=== PATIENT | female | born 1940 | race Caucasian/White ===

== ENCOUNTER 2016-10-11 13:50 | Emergency (ER) | payer MEDICARE, BC ==
[~2016-10-11 13:50] MED LIST: Iopamidol 370 76% 125 ML VIAL FS ONE
[2016-10-11 15:23] LABS: #Lymphocytes 1.1 thou/uL (1.20-3.40); #Monocytes 0.3 thou/uL (0.11-0.59); #Neutrophils 10.2 thou/uL (1.40-6.50); %Basophils 0.2 % (0.0-1.0); %Lymphocytes 9.7 % (21.0-51.0); %Monocytes 2.4 % (0.0-10.0); %Neutrophils 87.8 % (42.0-75.0); Hemoglobin 15.6 g/dL (12.0-16.0); Mean Corpuscular HGB CONC 33.3 g/dL (32.0-36.0); Mean Corpuscular Hemoglobin 31.9 pg (27.0-31.0); Mean Corpuscular Volume 95.8 fl (81.0-99.0); Mean Platelet Volume 7.9 fL (7.4-10.4); Platelet Count 238 thou/uL (130-400); RBC Distribution Width 12.7 % (11.5-14.5); White Blood Cell (WBC) Count 11.7 thou/uL (4.8-10.8)
[2016-10-11 15:31] LABS: Prothrombin Time 13.1 SEC (12.0-14.7)
[2016-10-11 15:32] LABS: PTT 27.9 SEC (22.9-36.1)
[2016-10-11 15:33] LABS: D-Dimer Test 0.64 *mcg/mL (0.27-0.43)
[2016-10-11 15:38] LABS: ALT (SGPT) 26 U/L (0-55); AST (SGOT) 26 U/L (5-34); Albumin 4.5 g/dL (3.4-4.8); Alkaline Phosphatase 101 U/L (40-150); Anion Gap 18 mmol/L (10-20); BUN (Urea Nitrogen) 13 mg/dL (9.8-20.1); Bilirubin, Total 0.5 mg/dL (0.2-1.2); Calc. Creatinine Clearance 0 mL/min (70-130); Calcium 10.1 mg/dL (7.8-10.44); Carbon Dioxide 25 mmol/L (23-31); Chloride 98 mmol/L (98-107); Estimated GFR-MDRD 72; Globulin 3.5 g/dL (2.4-3.5); Glucose 116 mg/dL (83-110); Lipase 6 U/L (8-78); Potassium 4.6 mmol/L (3.5-5.1); Sodium 136 mmol/L (136-145)
--- NOTE | 2016-10-11 15:38 | RAD ---
EXAM: ONE VIEW CHEST: COMPARISON: 07/25/16. HISTORY: Chest pain. FINDINGS: Enlarged cardiac silhouette. The patient is kyphotic which limits evaluation of the lung apices. T here is pleural and parenchymal of both lung bases. No obvious pneumothorax or osseous abnormality. IMPRESSION: Bibasilar pleural and parenchymal changes. POS: GRACE
[2016-10-11 15:43] LABS: CKMB 5.5 ng/mL (0-6.6); Troponin I Less than 0.010 ng/mL (< 0.028)
[2016-10-11] MEDS ORDERED: Fentanyl 100 MCG/2 ML VIAL ONE (16:17)
[2016-10-11 16:41] LABS: Bilirubin Negative (Negative); Blood, Urine Negative (Negative); Clarity Clear (Clear); Glucose, Urine (Dipstick) Negative (Negative); Leukocyte Negative (Negative); Nitrite Negative (Negative); Protein, Urine (Dipstick) Negative (Neg-Trace); Specific Gravity, Urine 1.015 (1.005-1.030); Urobilinogen 0.2 mg/dL (0.2-1.0); pH, Urine 7.5 (5.0-9.0)
[2016-10-11] MEDS ORDERED: methylPREDNISolone Sod Succ/PF 125 MG/2 ML VIAL ONE (18:16)
[2016-10-11] MEDS ORDERED: Sterile Water 10 ML ONE (18:17)
--- NOTE | 2016-10-11 19:22 | CT ---
CTA OF THE THORAX UTILIZING IV CONTRAST WITH PE PROTOCOL AND 3D REFORMAT IMAGING 10/11/16 CONTRAST: 120 mL of Isovue 370. COMPARISON: Prior exam dated 09/15/14. FINDINGS: No central or segmental pulmonary embolus is evident. There is air space consolidation left lower lobe. There is severe emphysema. There is slight prominence of the right infrahilar lymph node which is stable measuring 1.1 cm. Ther e is mildly prominent left hilar lymph nodes which are similar. There is some calcified lymph nodes within the mediastinum and hilar regions. There is a calcified granuloma in the right lower lobe. There is stable calcification within the rig ht hepatic lobe. There is diffuse osteopenia. There is vertebroplasty change involving the mid thora cic spine which is similar. IMPRESSION: 1. No central or segmental pulmonary embolus. 2. Left lower lobe pneumonia. 3. Severe emphysema. 4. Findings of prior granulomatous disease. 5. Vertebroplasty change and compression abnormalities of the mid thoracic spine. POS: YEIMI
--- NOTE | 2016-10-11 20:08 | ERRECORD ---
[facility] EMERGENCY RECORD HPI SHORTNESS OF BREATH (15:21 DHAM) CHIEF COMPLAINT: Patient presents for evaluation of shortness of breath, Patient presents for evaluation of chest pain. HISTORIAN: History provided by patient, History provided by patient's family, DAUGHTER, Pt started with "severe chest pain" 24 hours ago in the right upper chest. She has also had increased shortness of breath but has not increased the frequency of her nebulizers. She was started on oral steroids yesterday by her pcp and was hospitalized 4 weeks ago with "double pneumonia at [facility]" and 2 weeks ago at [facility] for "oxygen starvation" that I suspect was a COPD exacerbation. LOCATION: Symptoms are localized, most severe in the right upper chest. QUALITY: Pain is sharp in nature, described as stabbing. SEVERITY: Maximum severity of pain rated as 10/10, Current severity of pain rated as 8/10. TIME COURSE: Gradual onset of symptoms, 1, days priror to arrival, There has been no change in the patient's symptoms over time, are constant. ASSOCIATED WITH: No associated cough, Associated with chest pain, for 1 day, constant, No associated diaphoresis, No associated diarrhea, Associated with dyspnea on exertion, for 1 day, constant, No associated fever, No associated hemoptysis, No associated increased inhaler use, No associated nausea, No associated palpitations, No associated paroxysmal nocturnal dyspnea, No associated peripheral edema, Associated with pleuritic chest pain, for 1 day, constant, No associated upper respiratory infection, No associated vomiting, No associated wheezing. EXACERBATED BY: Patient's condition exacerbated by deep breaths. RELIEVED BY: Patient's condition relieved by nothing. RISK FACTORS: Coronary artery disease risk factors, include smoking, Thoracic aortic dissection risk factors, not applicable for this patient, Pulmonary embolism risk factors, include smoking. ROS (15:45 DHAM) CONSTITUTIONAL: Historian denies chills, denies fever, denies lethargy. EYES: Historian denies eye pain, denies eye redness, denies eye discharge. ENT: Historian denies rhinorrhea, denies sore throat, denies stridor, denies voice changes. CARDIOVASCULAR: Historian reports chest pain, pleuritic, in the right chest, upper, no radiation, Historian denies diaphoresis, reports dyspnea on exertion, reports exercise intolerance, denies syncope, denies palpitations. RESPIRATORY: Historian denies cough, reports shortness of breath, denies sputum. &a-1R&a+25V*p+0X*[id number]*c202B*c15G*c2P*p-0X&a-25V&a+1R Name: Ashly Box : 1940 F76 MedRec: [id number] AcctNum: [id number] Prepared: Tucker Oct 12, 2016 03:03 by Interface Page 1 of 6 pMD [facility] EMERGENCY RECORD GI: Historian denies abdominal pain, denies diarrhea, denies nausea, denies vomiting. chronic "problems with a hiatal hernia". GENITOURINARY FEMALE: Historian denies dysuria, denies frequency, denies urgency. MUSCULOSKELETAL: Historian denies arthralgias, denies injury. marked kyphosis. SKIN: Historian denies pruritis, denies rash, denies skin changes. NEUROLOGIC: Historian denies confusion, denies dizziness, denies gait changes, denies lethargy, denies mental status changes, denies paresthesias, denies sensory changes, denies speech changes. ENDOCRINE: Historian denies cold intolerance, denies polydipsia, denies polyuria. HEMO/LYMPHATIC: Historian denies abnormal blood clotting, denies easy bruising. ALLERGIC/IMMUNOLOGIC: Historian denies eczema, denies hives. PAST MEDICAL HISTORY MEDICAL HISTORY: Notes: VERIFIED 07-18-16, Past medical history includes cardiac history, coronary artery disease, myocardial infarction, Past medical history includes musculoskeletal disorder, osteoporosis, Past medical history includes pulmonary disease, chronic obstructive pulmonary disease, emphysema, Notes: COMPRESSION FRACTURES, CERVICAL CANCER, CHRONIC BACK PAIN, Past medical history includes gastrointestinal disease, gastroesophageal reflux disease, Past medical history includes history of hyperlipidemia, high cholesterol. verified 12/23/15.VERIFIED 10/11/16. (14:11 EROG) FEMALE SURGICAL HISTORY: FX PELVIS, BACK SURGERY X 3 IN 1970'S, HYSTERECTOMY, CERVICAL CANCER, FOOT SURGERIES TO RIGHT FOOT X 3, LEFT FOOT X 2, LEFT TKR,. verified 12/23/15. VERIFED 10/11/16. (14:11 EROG) PSYCHIATRIC HISTORY: Notes: DENIES, Notes: DENIES. verified 12/23/15. VERIFIED 10/11/16. (14:11 EROG) SOCIAL HISTORY: Patient denies alcohol use, Patient denies drug use, Patient is a former tobacco user, smoked cigarettes, Patient quit smoking less than 10 years ago, Patient denies alcohol use, Patient denies drug use, Patient is a former tobacco user, smoked cigarettes, Patient quit smoking in the past year. verified 12/23/15. VERIFIED 10/11/16. (14:11 EROG) Patient denies alcohol use, Patient denies drug use, Patient is a former tobacco user, smoked cigarettes, Patient quit smoking less than 10 years ago, Patient denies alcohol use, Patient denies drug use, Patient is a former tobacco user, smoked cigarettes, Patient quit smoking in the past year. verified 12/23/15. VERIFIED 10/11/16. Pt tells me that she did smoke a cigarette on the way up here and smokes intermittently. (15:56 DHAM) NOTES: HAVE EXAMINED AND AGREE WITH PMHX, SOCIAL HX AND PAST FAMILY HX as noted in nursing docuentation. (15:57 DHAM) &a-1R&a+25V*p+0X*[id number]*c202B*c15G*c2P*p-0X&a-25V&a+1R Name: Ashly Box : 1940 F76 MedRec: [id number] AcctNum: [id number] Prepared: Sat Oct 12, 2016 03:03 by Interface Page 2 of 6 pMD [facility] EMERGENCY RECORD KNOWN ALLERGIES No Known Drug Allergies CURRENT MEDICATIONS albuterol sulfate: SOLUTION, NON-ORAL : Strength - 5 mg/mL : INHALATION Patient Dose: Unknown. (14:06 EROG) Symbicort: HFA AEROSOL WITH ADAPTER (GRAM) : Strength - 160 mcg-4.5 mcg/actuation : INHALATION Patient Dose: Unknown. (14:07 EROG) Spiriva with HandiHaler: CAPSULE, WITH INHALATION DEVICE : Strength - 18 mcg : INHALATION Patient Dose: Unknown. (14:07 EROG) albuterol sulfate: VIAL, NEBULIZER (EA) : Strength - 2.5 mg/0.5 mL : INHALATION Patient Dose: Unknown. (14:07 EROG) Reglan: TABLET : Strength - 10 mg : ORAL Patient Dose: Unknown. (16:32 EROG) Duragesic: PATCH, TRANSDERMAL 72 HOURS : Strength - 25 mcg/hour : TRANSDERMAL Patient Dose: Unknown. (16:32 EROG) Lortab 10-325: TABLET : Strength - 10 mg-325 mg : ORAL Patient Dose: As Needed. (16:32 EROG) Neurontin: CAPSULE : Strength - 300 mg : ORAL Patient Dose: 300 mg Oral 3 times a day. (16:32 EROG) Lexapro: TABLET : Strength - 10 mg : ORAL Patient Dose: 10 mg Oral once a day. (16:32 EROG) PriLOSEC: CAPSULE,DELAYED RELEASE (ENTERIC COATED) : Strength - 20 mg : ORAL Patient Dose: 20 mg Oral once a day (in the morning). (16:32 EROG) simvastatin: TABLET : Strength - 40 mg : ORAL Patient Dose: 40 mg Oral once a day (at bedtime). (16:32 EROG) Tranxene T-Tab: TABLET : Strength - 3.75 mg : ORAL Patient Dose: 1 tab(s) Oral 3 times a day. (16:32 EROG) Flexeril: TABLET : Strength - 10 mg : ORAL Patient Dose: 10 mg Oral 3 times a day. (16:32 EROG) VITAL SIGNS VITAL SIGNS: BP: 139/80, Pulse: 111, Resp: 22, Temp: 97.6 (Oral), Pain: 8-9 (Constant), O2 sat: 88 on Room Air, Time: 10/11/2016 13:59. &a-1R&a+25V*p+0X*v5302W*c202B*c15G*c2P*p-0X&a-25V&a+1R Name: Ashly Box : 1940 F76 MedRec: [id number] AcctNum: [id number] Prepared: Sat Oct 12, 2016 03:03 by Interface Page 3 of 6 pMD [facility] EMERGENCY RECORD (13:59 EROG) BP: 147/96, Pulse: 102, Resp: 18, O2 sat: 89 on 3L Oxygen, Time: 10/11/2016 14:30. (14:30 EROG) BP: 137/95, Pulse: 105, Resp: 21, O2 sat: 95 on 3L Oxygen, Time: 10/11/2016 15:00. (15:00 EROG) BP: 139/87, Pulse: 111, Resp: 16, O2 sat: 90 on 3L Oxygen, Time: 10/11/2016 15:30. (15:30 EROG) BP: 139/93, Pulse: 111, Resp: 18, Pain: 8.5 (Sharp), O2 sat: 92 on 3L Oxygen, Time: 10/11/2016 16:00. (16:00 EROG) BP: 133/97, Pulse: 110, Resp: 16, Pain: 7, O2 sat: 94 on 3L Oxygen, Time: 10/11/2016 16:30. (16:30 EROG) BP: 142/84, Pulse: 99, Resp: 13, Pain: 5, O2 sat: 91 on 3L Oxygen, Time: 10/11/2016 17:09. (17:09 EROG) BP: 137/93, Pulse: 103, Resp: 17, Pain: 5, O2 sat: 61 on 2L Oxygen, Time: 10/11/2016 17:30. (17:30 EROG) BP: 149/108, Pulse: 109, O2 sat: 90 on 3L Oxygen, Time: 10/11/2016 18:00. (18:00 EROG) BP: 154/93, Pulse: 103, Resp: 23, Pain: 8, O2 sat: 89 on 3L Oxygen, Time: 10/11/2016 18:30. (18:30 EROG) BP: 140/91, Pulse: 100, Resp: 27, O2 sat: 92 on 3L Oxygen, Time: 10/11/2016 19:00. (19:00 EROG) BP: 150/94, Pulse: 102, Resp: 18, Pain: 5, O2 sat: 93 on 3L Oxygen, Time: 10/11/2016 19:30. (19:30 EROG) PHYSICAL EXAM (15:51 DHAM) CONSTITUTIONAL: Vital signs reviewed, Patient afebrile, Pulse mildly tachycardic, Blood pressure normal, Respiratory rate normal, Patient appears non toxic, Patient appears pain free, Patient alert and oriented to person, place and time. Pt ambulated in without her O2 and her RA sat was 61%. She was placed on 3L/nc and it comes up to 90-91%. HEAD: Head exam normal, Head exam included findings of head atraumatic, normocephalic. EYES: Eye exam included findings of eyelids normal to inspection, Pupils equally round and reactive to light, Extraocular muscles intact, Conjunctiva normal, Sclera normal. ENT: Ear exam normal, Nose exam normal, Pharynx exam normal, Uvula exam normal, Tonsil exam normal, Mouth exam normal, mucous membranes moist. NECK: Neck exam normal, Neck exam included findings of normal range of motion, Trachea midline, no meningeal signs, no jugular venous distention, no cervical adenopathy. RESPIRATORY CHEST: chest with marked kyphosis suggesting restrictive dz, Respiratory exam included findings of no respiratory distress, Breath sounds clear but markedly diffusely decreased, No wheezing, No rales noted. Bowel sounds noted on left chest exam. CARDIOVASCULAR: Cardiovascular exam included findings of heart rate mildly tachycardic and regular rhythm, Heart sounds normal, normal S1, normal S2, no murmurs, Pedal pulses normal. ABDOMEN FEMALE: Abdominal exam normal, Abdominal exam included &a-1R&a+25V*p+0X*m3887K*c202B*c15G*c2P*p-0X&a-25V&a+1R Name: Ashly Box : 1940 F76 MedRec: [id number] AcctNum: [id number] Prepared: Sat Oct 12, 2016 03:03 by Interface Page 4 of 6 pMD [facility] EMERGENCY RECORD findings of abdomen nontender, Bowel sounds normal, Liver normal, Spleen normal, no distension, no mass, no peritoneal signs, no rigidity, no guarding, no rebound. BACK: Back exam normal, Back exam included findings of normal inspection, range of motion normal, no tenderness. UPPER EXTREMITY: Upper extremity exam normal, Upper extremity exam included findings of inspection normal, Range of motion normal, Motor strength normal, Sensation intact. LOWER EXTREMITY: Lower extremity exam normal, Lower extremity exam included findings of inspection normal, Range of motion normal, Motor strength normal, Sensation intact, Pedal pulse normal. NEURO: Mertzon coma scale 15, Neuro exam findings include patient oriented to person, place and time, Speech normal, Gait normal, Cranial nerves intact, Deep tendon reflexes normal, no focal motor deficits, no focal sensory deficits, no cerebellar deficits. SKIN: Skin exam normal, Skin exam included findings of skin warm, dry, and normal in color, no rash. LYMPHATIC: Lymphatic exam normal, Lymphatic exam included findings of cervical nodes normal. PSYCHIATRIC: Psychiatric exam included findings of patient oriented to person place and time, Normal affect, Judgment normal, Insight normal, Remote memory normal, Recent memory normal, Concentration normal, No suicidal ideations. EKG INTERPRETATION (14:54 DHAM) 12 LEAD EKG INTERPRETATION: 12 lead EKG interpreted by Emergency Department Physician at time of study, 12 lead EKG shows, sinus tachycardia, Rate (beats per minute): 102, with no ectopics, Compared with previous EKG from, 07/25/2016 04:52, Interpretation: normal EKG, Similar to old EKG, Conduction normal, ST segments normal, T waves normal, [place], left. RADIOLOGYINTERPRETATION CHEST: Chest films negative, no infiltrates, no pneumothorax, no hemothorax, no masses, no cardiomegaly, no congestive heart failure, no effusion, no free air, "bilat basilar parenchymal changes". (17:46 DHAM) Chest CT, with contrast shows, no fractures, patchy infiltrate, to the left lower, no pneumothorax, no hemothorax, no pleural effusion, no pulmonary embolism, no mass. (17:52 DHAM) MEDICATION ADMINISTRATION SUMMARY Drug Name: Solu-MEDROL intravenous, Dose Ordered: 125 mg, Route: IV Push, Status: Given, Time: 18:27 10/11/2016, Drug Name: Levaquin in 5 % dextrose, Dose Ordered: 750 mg, Route: IV Piggy Back, Status: Given, Time: 17:48 10/11/2016, Drug Name: *fentaNYL (PF) intravenous, Dose Ordered: 25 mcg, Route: IV Push, Status: Given, Time: 16:39 10/11/2016, Drug Name: fentaNYL (PF) intravenous, Dose Ordered: 25 mcg, Route: IV &a-1R&a+25V*p+0X*v8837S*c202B*c15G*c2P*p-0X&a-25V&a+1R Name: Ashly Box : 1940 F76 MedRec: [id number] AcctNum: [id number] Prepared: Sat Oct 12, 2016 03:03 by Interface Page 5 of 6 pMD [facility] EMERGENCY RECORD Push, Status: Given, Time: 16:22 10/11/2016, Drug Name: DuoNeb, Dose Ordered: 3 mL, Route: Nebulize, Status: Given, Time: 15:01 10/11/2016, *Additional information available in notes, Detailed record available in Medication Service section. DOCTOR NOTES (17:47 DHAM) TEXT: Given the pt's tenuous pulmonary status, she likely needs RT evaluation with her admission. Pt requests [facility]. Pt discussed with Dr. Mcclendon who accepts the pt in transfer via EMS. She appears stable for transfer. She has had her Levaquin 750mg IV started. PROBLEM LIST No recorded problems DIAGNOSIS (17:45 DHAM) FINAL: PRIMARY: PNEUMONIA UNSPECIFIED ORGANISM. PRESCRIPTION No recorded prescriptions DISPOSITION PATIENT: Disposition Type: Transfer, Disposition: Transfer to [facility]. (17:45 DHAM) Patient left the department. (20:03 EROG) [place]: MARCO=MD Leora, George EROG=GUSTAVO Schmidt, Khang &a-1R&a+25V*p+0X*r3404V*c202B*c15G*c2P*p-0X&a-25V&a+1R Name: Ashly Box : 1940 F76 MedRec: [id number] AcctNum: [id number] Prepared: Sat Oct 12, 2016 03:03 by Interface Page 6 of 6 pMD MTDD
--- NOTE | 2016-10-11 20:15 | PICIS ---
[facility] EMERGENCY RECORD COMMUNICATIONS COMMUNICATIONS: Other notification, Name Caitlin, contacted at [facility], Reason for notification Transfer request, 1750: MD to MD merchant/Dr. Herrera accepted/Carmelina Hatch giving AD approval for ED to ED transfer. (17:45 AGAN) Ambulance service, contacted at [facility] EMS Dispatch, Name of provider Dr. Espana, Person contacted [place], requested for transfer to another facility, by advanced life support transport, Estimated time of arrival Unknown, Medic 41 on 911 call ETA unknown. (17:55 AGAN) Notes: 1949: Ambulance arrival time 2001: Departure time. (19:50 AGAN) TRIAGE (FriOct 11, 2016 14:02 EROG) TRIAGE NOTES: C/O SEVERE PAIN TO MID CHEST, RADIATING OUT TO RIGHT SIDE. (FriOct 11, 2016 14:02 EROG) PATIENT: NAME: Ashly Box, AGE: 76, GENDER: female, : Sari 1940, TIME OF GREET: FriOct 11, 2016 13:50, PREFERRED LANGUAGE: Paraguayan, ETHNICITY: Not or , FALL RISK: YES, ECODE BILLING MAP: [facility], SSN: [id number], Zip Code: [address], KG WEIGHT: 56.70, HEIGHT/LENGTH: 167.64cm, BMI: 20.17, PHONE: , , , PERSON ID: [id number], PCP: DR. ROSALVA LUIS. (FriOct 11, 2016 14:02 EROG) COMPLAINT: PAIN. (FriOct 11, 2016 14:02 EROG) ADMISSION: URGENCY: 3 Urgent, ADMISSION SOURCE: Home, TRANSPORT: CAR, BED: TRIAGE. (FriOct 11, 2016 14:02 EROG) ASSESSMENT: Assessment: SHART PAIN TO MID CHEST, RADIATING OUT TO RIGHT CHEST., Symptoms began 2 days ago. (14:11 EROG) SIRS SCORING: Heart Rate 55-109 (0), Temp range 96.8-101.1 (0), respiratory rate 12-24 (0), Mental Status altered: no (0), Infection or Suspected Infection: No. (14:11 EROG) PROVIDERS: TRIAGE NURSE: Khang Dumont RN. (FriOct 11, 2016 14:02 EROG) VITAL SIGNS: BP 139/80, Pulse 111, Resp 22, Temp 97.6, (Oral), Pain 8-9, (Constant), O2 Sat 88, on Room Air, Time 10/11/2016 13:59. (13:59 EROG) PREVIOUS VISIT ALLERGIES: No Known Drug Allergies. (FriOct 11, 2016 14:02 EROG) No Known Drug Allergies. (14:11 EROG) KNOWN ALLERGIES No Known Drug Allergies CURRENT MEDICATIONS albuterol sulfate: SOLUTION, NON-ORAL : Strength - 5 mg/mL : INHALATION Patient Dose: Unknown. (14:06 EROG) Symbicort: HFA AEROSOL WITH ADAPTER (GRAM) : Strength - 160 mcg-4.5 &a-1R&a+25V*p+0X*f5855Z*c202B*c15G*c2P*p-0X&a-25V&a+1R Name: Charu Ashly Andrew : 1940 F76 MedRec: [id number] AcctNum: [id number] Prepared: Sat Oct 12, 2016 03:10 by Interface Page 1 of 17 pMD [facility] EMERGENCY RECORD mcg/actuation : INHALATION Patient Dose: Unknown. (14:07 EROG) Spiriva with HandiHaler: CAPSULE, WITH INHALATION DEVICE : Strength - 18 mcg : INHALATION Patient Dose: Unknown. (14:07 EROG) albuterol sulfate: VIAL, NEBULIZER (EA) : Strength - 2.5 mg/0.5 mL : INHALATION Patient Dose: Unknown. (14:07 EROG) Reglan: TABLET : Strength - 10 mg : ORAL Patient Dose: Unknown. (16:32 EROG) Duragesic: PATCH, TRANSDERMAL 72 HOURS : Strength - 25 mcg/hour : TRANSDERMAL Patient Dose: Unknown. (16:32 EROG) Lortab 10-325: TABLET : Strength - 10 mg-325 mg : ORAL Patient Dose: As Needed. (16:32 EROG) Neurontin: CAPSULE : Strength - 300 mg : ORAL Patient Dose: 300 mg Oral 3 times a day. (16:32 EROG) Lexapro: TABLET : Strength - 10 mg : ORAL Patient Dose: 10 mg Oral once a day. (16:32 EROG) PriLOSEC: CAPSULE,DELAYED RELEASE (ENTERIC COATED) : Strength - 20 mg : ORAL Patient Dose: 20 mg Oral once a day (in the morning). (16:32 EROG) simvastatin: TABLET : Strength - 40 mg : ORAL Patient Dose: 40 mg Oral once a day (at bedtime). (16:32 EROG) Tranxene T-Tab: TABLET : Strength - 3.75 mg : ORAL Patient Dose: 1 tab(s) Oral 3 times a day. (16:32 EROG) Flexeril: TABLET : Strength - 10 mg : ORAL Patient Dose: 10 mg Oral 3 times a day. (16:32 EROG) VITAL SIGNS VITAL SIGNS: BP: 139/80, Pulse: 111, Resp: 22, Temp: 97.6 (Oral), Pain: 8-9 (Constant), O2 sat: 88 on Room Air, Time: 10/11/2016 13:59. (13:59 EROG) BP: 147/96, Pulse: 102, Resp: 18, O2 sat: 89 on 3L Oxygen, Time: 10/11/2016 14:30. (14:30 EROG) BP: 137/95, Pulse: 105, Resp: 21, O2 sat: 95 on 3L Oxygen, Time: 10/11/2016 15:00. (15:00 EROG) BP: 139/87, Pulse: 111, Resp: 16, O2 sat: 90 on 3L Oxygen, Time: 10/11/2016 15:30. (15:30 EROG) BP: 139/93, Pulse: 111, Resp: 18, Pain: 8.5 (Sharp), O2 sat: 92 on 3L Oxygen, Time: 10/11/2016 16:00. (16:00 EROG) &a-1R&a+25V*p+0X*r7094P*c202B*c15G*c2P*p-0X&a-25V&a+1R Name: Ashly Box : 1940 F76 MedRec: [id number] AcctNum: [id number] Prepared: Sat Oct 12, 2016 03:10 by Interface Page 2 of 17 pMD [facility] EMERGENCY RECORD BP: 133/97, Pulse: 110, Resp: 16, Pain: 7, O2 sat: 94 on 3L Oxygen, Time: 10/11/2016 16:30. (16:30 EROG) BP: 142/84, Pulse: 99, Resp: 13, Pain: 5, O2 sat: 91 on 3L Oxygen, Time: 10/11/2016 17:09. (17:09 EROG) BP: 137/93, Pulse: 103, Resp: 17, Pain: 5, O2 sat: 61 on 2L Oxygen, Time: 10/11/2016 17:30. (17:30 EROG) BP: 149/108, Pulse: 109, O2 sat: 90 on 3L Oxygen, Time: 10/11/2016 18:00. (18:00 EROG) BP: 154/93, Pulse: 103, Resp: 23, Pain: 8, O2 sat: 89 on 3L Oxygen, Time: 10/11/2016 18:30. (18:30 EROG) BP: 140/91, Pulse: 100, Resp: 27, O2 sat: 92 on 3L Oxygen, Time: 10/11/2016 19:00. (19:00 EROG) BP: 150/94, Pulse: 102, Resp: 18, Pain: 5, O2 sat: 93 on 3L Oxygen, Time: 10/11/2016 19:30. (19:30 EROG) NURSING ASSESSMENT: CARDIOVASCULAR (14:15 EROG) CONSTITUTIONAL: Patient arrives ambulatory, Unsteady gait, Assistance to cart, History obtained from patient, Patient appears, in distress due to pain, Patient cooperative, Patient alert, Oriented to person, place and time, Skin warm, Skin dry, Skin normal in color, Mucous membranes pink, Mucous membranes moist, Patient is well-groomed, Patient complains of cp increasing with respirations. PAIN: midsternal, to the right chest, constant, on a scale 0-10 patient rates pain as 8, Pain exacerbated by, inspirations, Nothing has been tried to alleviate the pain. CARDIOVASCULAR: Cardiovascular assessment findings include heart rate normal, Heart rhythm normal sinus, Heart sounds normal, Associated with dyspnea, with exertion, no associated palpitations, Notes: occasional pvc. RESPIRATORY/CHEST: Lungs auscultated, Breath sounds diminished, to bilateral lower lobes, Respiratory assessment findings include respiratory effort, shallow, Respirations regular, Conversing normally, Neck and chest exam findings include trachea midline, Chest expansion equal, Chest movement symmetrical, Notes: tender to touch on right upper chest. NOTES: Patient tolerated procedure well. NURSING PROCEDURE: MARKET STALL VENDOR (14:22 EROG) PATIENT IDENTIFIER: Patient actively involved in identification process, Patient's identity verified by patient stating name, Patient's identity verified by patient stating date, Patient's identity verified by hospital ID bracelet, Patient's identity verified by family member. MARKET STALL VENDOR: Cardiac monitoring indicated for complaint of chest pain, Patient placed on biology intern, Heart rate: 88, showing normal sinus rhythm, without ectopy, with no ST segment changes, Patient placed on non-invasive blood pressure &a-1R&a+25V*p+0X*z8879R*c202B*c15G*c2P*p-0X&a-25V&a+1R Name: Ashly Box : 1940 F76 MedRec: [id number] AcctNum: [id number] Prepared: Tucker Oct 12, 2016 03:10 by Interface Page 3 of 17 D [facility] EMERGENCY RECORD monitor, Patient placed on continuous pulse oximetry, Adult/pediatric oxisensor applied, Oxygen saturation 88%. NURSING PROCEDURE: EKG CHART (14:29 EROG) PATIENT IDENTIFIER: Patient actively involved in identification process, Patient's identity verified by patient stating name, Patient's identity verified by hospital ID bracelet, Patient's identity verified by family member. EKG: EKG indicated for complaint of chest pain, 12 lead EKG performed on the left chest, done by Manjit DUMONT RN, first EKG. FOLLOW-UP: After procedure, EKG for interpretation given to Dr. Espana. NOTES: Patient tolerated procedure well. NURSING PROCEDURE: IV PATIENT IDENITIFIER: Patient actively involved in identification process, Patient's identity verified by patient stating name, Patient's identity verified by hospital ID bracelet. (15:10 EROG) Patient actively involved in identification process, Patient's identity verified by patient stating name, Patient's identity verified by hospital ID bracelet. (16:10 EROG) IV SITE 1: IV therapy indicated for medication administration, IV established, to the left wrist, using a 20 gauge catheter, in two attempts, IV site prepped with CHLOROPREP, Saline lock established, Flushed with normal saline (mls): 10, Blood cultures drawn at time of placement, labeled in the presence of the patient and sent to lab, Notes: 1st set. (15:10 EROG) IV therapy indicated for ct angio, IV established, to the right antecubital, using an 18 gauge catheter, in one attempt, IV site prepped with CHLOROPREP, Flushed with normal saline (mls): 10. (16:10 EROG) FOLLOW-UP SITE 1: After procedure, sterile transparent dressing applied. (15:10 EROG) After procedure, sterile transparent dressing applied. (16:10 EROG) NOTES: Patient tolerated procedure well. (15:10 EROG) Patient tolerated procedure well. (16:10 EROG) NURSING PROCEDURE: NURSE NOTES NURSES NOTES: Patient in no apparent distress, Patient resting quietly, Patient is awaiting results, Notes: Radiology in room explaining procedure for CT Angio. (16:20 EROG) Patient in no apparent distress, Patient states decreased pain, Patient resting quietly, Notes: Pain decreased from 8 to 7 after first 25 mcg of fentanyl. Medicated with second dose as ordered. dairy technologist in room to transport pt. for CT. (16:42 EROG) Warm blanket given to patient, Notes: 2 blankets 2 towels for pillow given. (18:45 SG) Patient in no apparent distress, Patient resting quietly, Patient is awaiting disposition, Notes: TRANSPORT DELAYED D/T EMERGENT PATIENT NEEDING TO GO FIRST. (19:38 EROG) &a-1R&a+25V*p+0X*k3625U*c202B*c15G*c2P*p-0X&a-25V&a+1R Name: Ashly Box : 1940 F76 MedRec: [id number] AcctNum: [id number] Prepared: Tucker Oct 12, 2016 03:10 by Interface Page 4 of 17 pMD [facility] EMERGENCY RECORD NURSING PROCEDURE: RESPIRATORY INTERVENTIONS PATIENT IDENTIFIER: Patient actively involved in identification process, Patient's identity verified by patient stating name, Patient's identity verified by patient stating date, Patient's identity verified by hospital ID [email or web address]. (14:22 EROG) Patient actively involved in identification process, Patient's identity verified by patient stating name, Patient's identity verified by hospital ID twyla, Patient's identity verified by family member. (15:01 EROG) RESPIRATORY INTERVENTIONS: Respiratory interventions indicated for desaturation, Pre-intervention breath sounds clear, to the left upper lobe, to the right upper lobe, Pre-intervention breath sounds absent, to bilateral lower lobes, Patient given ALBUTEROL with ATROVENT, Single dose nebulizer, Patient returned demonstration of use of aerochamber. (14:22 EROG) Respiratory interventions indicated for desaturation, Pre-intervention breath sounds clear, to bilateral upper lobes, Pre-intervention breath sounds absent, to bilateral lower lobes, Patient given ALBUTEROL with ATROVENT, Single dose nebulizer, Patient returned demonstration of use of aerochamber. (15:01 EROG) NOTES: Patient tolerated procedure well. (15:01 EROG) NURSING PROCEDURE: TRANSFER (20:03 EROG) TRANSFER: Diagnosis: LLL PNEUMONIA, Accepting institution: [facility], Accepting physician: DR. HERRERA, Referring physician: DR. ESPANA, Transported by urgent ambulance, accompanied by emergency medical services personnel, Report called to receiving facility, [facility], Provided opportunity to answer questions, Bed assigned ED, Summary of Care printed, Copy of patient record prepared for receiving facility, Copy of diagnostic studies, Patient consent for transfer signed, Family member contacted. BELONGINGS: money, Belongings remain with patient, Valuables remain with patient. NURSING PROCEDURE: TRANSPORT TO TESTS PATIENT IDENTIFIER: Patient actively involved in identification process, Patient's identity verified by patient stating name, Patient's identity verified by patient stating date, Patient's identity verified by hospital ID twyla. (16:40 EROG) TRANSPORT TO TESTS: Transport indicated to facilitate diagnosis, Patient transported to CT scan, via wheelchair, Accompanied by x-ray carpet cleaning technician. (16:40 EROG) FOLLOW-UP: After procedure, patient returned to emergency department, Notes: PT. PLACED BACK ON MARKET STALL VENDOR. PAIN HAS DECREASED FROM 7 DEOWN TO 5/10. DAUGHTER AT BEDSIDE. (17:09 EROG) NURSING PROCEDURE: URINE COLLECTION (15:42 EROG) PATIENT IDENTIFIER: Patient actively involved in identification &a-1R&a+25V*p+0X*y2533A*c202B*c15G*c2P*p-0X&a-25V&a+1R Name: Ashly Box : 1940 F76 MedRec: [id number] AcctNum: [id number] Prepared: Tucker Oct 12, 2016 03:10 by Interface Page 5 of 17 D [facility] EMERGENCY RECORD process, Patient's identity verified by patient stating name, Patient's identity verified by hospital ID twyla. URINE COLLECTION FEMALE: Urine collected by straight cath, using an 8fr catheter kit, in two attempts, urine yellow in color, and clear, Specimen collected, labeled in the presence of the patient and sent to lab, Specimen obtained for culture labeled in the presence of the patient and sent to lab. NOTES: Patient tolerated procedure well. ORDER DETAILS Order Name: MARKET STALL VENDOR ED, Status: Done, Time: 14:36 10/11/2016, User: RIO, - Ordered for: MD Espana Darren, - Entered by: MD Espana Darren - FriOct 11, 2016 14:26, - Quantity: 1, Order Name: Cardiac Profile w/CKMB & Troponin - I, Status: Active, Time: 14:26 10/11/2016, User: MARCO, - Ordered for: MD Espana Darren, - Entered by: MD Espana Darren - FriOct 11, 2016 14:26, - Quantity: 1, Order Name: CBC with Differential, Status: Active, Time: 14:26 10/11/2016, User: MARCO, - Ordered for: MD Espana Darren, - Entered by: MD Espana Darren - FriOct 11, 2016 14:26, - Quantity: 1, Order Name: Comprehensive Metabolic Panel, Status: Active, Time: 14:26 10/11/2016, User: MARCO, - Ordered for: MD Espana Darren, - Entered by: MD Espana Darren - FriOct 11, 2016 14:26, - Quantity: 1, Order Name: CTA Angio Chest W WO Con(PE Protocol), Status: Active, Time: 16:14 10/11/2016, User: MARCO, - Ordered for: MD Espana Darren, - Entered by: MD Espana Darren - FriOct 11, 2016 16:14, - Quantity: 1, Order Name: Culture, Blood, Status: Active, Time: 14:26 10/11/2016, User: MARCO, - Ordered for: MD Espana Darren, - Entered by: MD Espana Darren - Fri Oct 11, 2016 14:26, - Quantity: 1, Order Name: D-Dimer (Quantitative), Status: Active, Time: 14:26 10/11/2016, User: MARCO, - Ordered for: MD Espana Darren, - Entered by: MD Espana Darren - Fri Oct 11, 2016 14:26, - Quantity: 1, Order Name: EKG 12 Lead in Emergency Room, Status: Active, Time: 14:10/11/2016, User: MARCO, - Ordered for: MD Espana Darren, - Entered by: MD Espana Darren - Fri Oct 11, 2016 14:26, &a-1R&a+25V*p+0X*a3077Z*c202B*c15G*c2P*p-0X&a-25V&a+1R Name: Box, Ashly Andrew : 1940 F76 MedRec: [id number] AcctNum: [id number] Prepared: Tucker Oct 12, 2016 03:10 by Interface Page 6 of 17 D [facility] EMERGENCY RECORD - Quantity: 1, Order Name: ERRT * Smal Vol Neb Initial Trmt, Status: Active, Time: 14:27 10/11/2016, User: MARCO, - Ordered for: MD Espana Darren, - Entered by: MD Espana Darren - Fri Oct 11, 2016 14:27, - Quantity: 1, Order Name: ERRT Oxygen Usage ER, Status: Active, Time: 14:26 10/11/2016, User: MARCO, - Ordered for: MD Espana Darren, - Entered by: MD Espana Darren - Fri Oct 11, 2016 14:26, - Quantity: 1, Order Name: ERRT Pulse Oximeter ER, Status: Active, Time: 14:26 10/11/2016, User: MARCO, - Ordered for: MD Espana Darren, - Entered by: MD Espana Darren - Fri Oct 11, 2016 14:26, - Quantity: 1, Order Name: Lactic Acid with repeat, Status: Active, Time: 14:26 10/11/2016, User: MARCO, - Ordered for: MD Espana Darren, - Entered by: MD Espana Darren - [facility] Oct 11, 2016 14:26, - Quantity: 1, Order Name: Lipase, Status: Active, Time: 14:26 10/11/2016, User: MARCO, - Ordered for: MD Espana Darren, - Entered by: MD Espana Darren - [facility] Oct 11, 2016 14:26, - Quantity: 1, Order Name: Protime with INR, Status: Active, Time: 14:26 10/11/2016, User: MARCO, - Ordered for: MD Espana Darren, - Entered by: MD Espana Darren - [facility] Oct 11, 2016 14:26, - Quantity: 1, Order Name: PTT, Status: Active, Time: 14:26 10/11/2016, User: MARCO, - Ordered for: MD Espana Darren, - Entered by: MD Espana Darren - [facility] Oct 11, 2016 14:26, - Quantity: 1, Order Name: SALINE LOCK, Status: Done, Time: 15:11 10/11/2016, User: EROG, - Ordered for: MD Espana Darren, - Entered by: MD Espana Darren - [facility] Oct 11, 2016 14:26, - Quantity: 1, Order Name: Urinalysis w/ Rflx Microscopic, Status: Active, Time: 14:26 10/11/2016, User: MARCO, - Ordered for: MD Espana Darren, - Entered by: MD Espana Darren - [facility] Oct 11, 2016 14:26, - Quantity: 1, Order Name: XR Chest 1 View Portable, Status: Active, Time: 14:26 10/11/2016, User: MARCO, - Ordered for: MD Espana Darren, - Entered by: MD Espana Darren - [facility] Oct 11, 2016 14:26, - Quantity: 1. &a-1R&a+25V*p+0X*a2679Q*c202B*c15G*c2P*p-0X&a-25V&a+1R Name: Ashly Box : 1940 F76 MedRec: [id number] AcctNum: [id number] Prepared: [facility] Oct 12, 2016 03:10 by Interface Page 7 of 17 pMD [facility] EMERGENCY RECORD MEDICATION ADMINISTRATION SUMMARY Drug Name: Solu-MEDROL intravenous, Dose Ordered: 125 mg, Route: IV Push, Status: Given, Time: 18:27 10/11/2016, Drug Name: Levaquin in 5 % dextrose, Dose Ordered: 750 mg, Route: IV Piggy Back, Status: Given, Time: 17:48 10/11/2016, Drug Name: *fentaNYL (PF) intravenous, Dose Ordered: 25 mcg, Route: IV Push, Status: Given, Time: 16:39 10/11/2016, Drug Name: fentaNYL (PF) intravenous, Dose Ordered: 25 mcg, Route: IV Push, Status: Given, Time: 16:22 10/11/2016, Drug Name: DuoNeb, Dose Ordered: 3 mL, Route: Nebulize, Status: Given, Time: 15:01 10/11/2016, *Additional information available in notes, Detailed record available in Medication Service section. MEDICATION SERVICE DuoNeb: Order: DuoNeb (ipratropium bromide/albuterol sulfate) - Dose: 3 mL : Nebulize Schedule: Now Ordered by: George Espana MD Entered by: George Espana MD FriOct 11, 2016 14:27 , Acknowledged by: Khang Dumont RN FriOct 11, 2016 14:37 Documented as given by: Khang Dumont RN FriOct 11, 2016 15:01 Patient, Medication, Dose, Route and Time verified prior to administration. Amount given: 3 ml, Site: Medication administered via Hand-held nebulizer, With oxygen, Correct patient, time, route, dose and medication confirmed prior to administration, Patient advised of actions and side-effects prior to administration, Allergies confirmed and medications reviewed prior to administration, Patient in position of comfort, Cart in lowest position, Family at bedside. fentaNYL (PF) intravenous: Order: fentaNYL (PF) intravenous (fentanyl citrate/preservative free) - Dose: 25 mcg : IV Push Schedule: Now Ordered by: George Espana MD Entered by: George Espana MD FriOct 11, 2016 16:15 , Acknowledged by: Khang Dumont RN FriOct 11, 2016 16:16 Documented as given by: Khang Dumont RN FriOct 11, 2016 16:22 Patient, Medication, Dose, Route and Time verified prior to administration. Amount given: 25 mcg, IV SITE #1 IVP, initial medication, Slowly, Awake and alert- acceptable, Catheter placement confirmed via flush prior to administration, IV site without signs or symptoms of infiltration during medication administration, No swelling during administration, No drainage during administration, IV flushed after administration, Correct patient, time, route, dose and medication confirmed prior to administration, Patient advised of actions and side-effects prior to administration, Allergies confirmed and medications reviewed prior to administration, Patient tolerated &a-1R&a+25V*p+0X*y2697L*c202B*c15G*c2P*p-0X&a-25V&a+1R Name: Ashly Box : 1940 F76 MedRec: [id number] AcctNum: [id number] Prepared: Sat Oct 12, 2016 03:10 by Interface Page 8 of 17 pMD [facility] EMERGENCY RECORD procedure well, Patient in position of comfort, Side rails up, Cart in lowest position, Family at bedside, Call light in reach, rated pain 8.5 prior to medication. : Follow Up : Response assessment performed, No signs or symptoms of allergic reaction noted, Decreased pain, _IV SITE #1:_, Advised not to ambulate without assistance, Patient in position of comfort, Side rails up, Cart in lowest position, Family at bedside, PAIN DECREASE FROM 8.5 TO 7/10. NOTIFIED DR. ESPANA AND RECEIVED ORDER TO REPEAT DOSE. (16:35 EROG) fentaNYL (PF) intravenous: Order: fentaNYL (PF) intravenous (fentanyl citrate/preservative free) - Dose: 25 mcg : IV Push Schedule: Now Notes: Pt is narcotic tolerant with fentanyl patch and oral [place] 10mg Ordered by: George Espana MD Entered by: George Espana MD FriOct 11, 2016 16:34 , Acknowledged by: Khang Dumont RN FriOct 11, 2016 16:36 Documented as given by: Khang Dumont RN FriOct 11, 2016 16:39 Patient, Medication, Dose, Route and Time verified prior to administration. Amount given: 25 mcg, IV SITE #1 IVP, subsequent different medication, Slowly, Awake and alert- acceptable, Catheter placement confirmed via flush prior to administration, IV site without signs or symptoms of infiltration during medication administration, No swelling during administration, No drainage during administration, IV flushed after administration, Correct patient, time, route, dose and medication confirmed prior to administration, Patient advised of actions and side-effects prior to administration, Allergies confirmed and medications reviewed prior to administration, Patient tolerated procedure well, Patient in position of comfort, Side rails up, Cart in lowest position, Family at bedside, Call light in reach. : Follow Up : Response assessment performed, Decreased pain, _IV SITE #1:_, PAIN DECREASED TO 5/10. (17:14 EROG) Levaquin in 5 % dextrose: Order: Levaquin in 5 % dextrose (levofloxacin/dextrose 5 % in water) - Dose: 750 mg : IV Piggy Back Schedule: Now Ordered by: George Espana MD Entered by: George Espana MD FriOct 11, 2016 17:40 , Acknowledged by: Khang Dumont RN FriOct 11, 2016 17:42 Documented as given by: Khang Dumont RN FriOct 11, 2016 17:48 Patient, Medication, Dose, Route and Time verified prior to administration. Amount given: 750MG, IV SITE #1 IVPB or drip, initial infusion, Premixed, via primary tubing, at 100 ml/hr, Awake and alert- acceptable, Catheter placement confirmed via flush prior to administration, IV site without signs or symptoms of infiltration during medication administration, No swelling during administration, No drainage during administration, IV flushed after administration, &a-1R&a+25V*p+0X*v1723Q*c202B*c15G*c2P*p-0X&a-25V&a+1R Name: Ashly Box : 1940 F76 MedRec: [id number] AcctNum: [id number] Prepared: Sat Oct 12, 2016 03:10 by Interface Page 9 of 17 pMD [facility] EMERGENCY RECORD Correct patient, time, route, dose and medication confirmed prior to administration, Patient advised of actions and side-effects prior to administration, Allergies confirmed and medications reviewed prior to administration, Patient in position of comfort, Side rails up, Cart in lowest position, Family at bedside, Call light in reach. : Follow Up : No signs or symptoms of allergic reaction noted, Site inspection shows, No swelling at administration site, No drainage at administration site, No bleeding at site, No bruising noted at site, _IV SITE #2:_, Medication infusion discontinued, on FriOct 11, 2016 19:37, Total infusion time IV site 2 1 hour, 50 minutes, ., Total amount infused: 150 ML, IV Line flushed after administration, Advised not to ambulate without assistance, Patient in position of comfort, Side rails up, Cart in lowest position, Family at bedside. (19:36 EROG) Solu-MEDROL intravenous: Order: Solu-MEDROL intravenous (methylprednisolone sod succ) - Dose: 125 mg : IV Push Schedule: Now Ordered by: George Espana MD Entered by: George Espana MD FriOct 11, 2016 17:58 , Acknowledged by: Khang Dumont RN FriOct 11, 2016 18:16 Documented as given by: Khang Dumont RN FriOct 11, 2016 18:27 Patient, Medication, Dose, Route and Time verified prior to administration. Amount given: 125 MG, IV SITE #1 IVP, initial medication, Slowly, Awake and alert- acceptable, Catheter placement confirmed via flush prior to administration, IV site without signs or symptoms of infiltration during medication administration, No swelling during administration, No drainage during administration, IV flushed after administration, Correct patient, time, route, dose and medication confirmed prior to administration, Patient advised of actions and side-effects prior to administration, Allergies confirmed and medications reviewed prior to administration, Patient in position of comfort, Side rails up, Cart in lowest position, Family at bedside, Call light in reach. HPI SHORTNESS OF BREATH (15:21 DHAM) CHIEF COMPLAINT: Patient presents for evaluation of shortness of breath, Patient presents for evaluation of chest pain. HISTORIAN: History provided by patient, History provided by patient's family, DAUGHTER, Pt started with "severe chest pain" 24 hours ago in the right upper chest. She has also had increased shortness of breath but has not increased the frequency of her nebulizers. She was started on oral steroids yesterday by her pcp and was hospitalized 4 weeks ago with "double pneumonia at [facility]" and 2 weeks ago at [facility] for "oxygen starvation" that I suspect was a COPD exacerbation. LOCATION: Symptoms are localized, most severe in the right upper chest. QUALITY: Pain is sharp in nature, described as stabbing. SEVERITY: Maximum severity of pain rated as 10/10, Current &a-1R&a+25V*p+0X*v2485D*c202B*c15G*c2P*p-0X&a-25V&a+1R Name: Ashly Box : 1940 F76 MedRec: [id number] AcctNum: [id number] Prepared: Sat Oct 12, 2016 03:10 by Interface Page 10 of 17 pMD [facility] EMERGENCY RECORD severity of pain rated as 8/10. TIME COURSE: Gradual onset of symptoms, 1, days priror to arrival, There has been no change in the patient's symptoms over time, are constant. ASSOCIATED WITH: No associated cough, Associated with chest pain, for 1 day, constant, No associated diaphoresis, No associated diarrhea, Associated with dyspnea on exertion, for 1 day, constant, No associated fever, No associated hemoptysis, No associated increased inhaler use, No associated nausea, No associated palpitations, No associated paroxysmal nocturnal dyspnea, No associated peripheral edema, Associated with pleuritic chest pain, for 1 day, constant, No associated upper respiratory infection, No associated vomiting, No associated wheezing. EXACERBATED BY: Patient's condition exacerbated by deep breaths. RELIEVED BY: Patient's condition relieved by nothing. RISK FACTORS: Coronary artery disease risk factors, include smoking, Thoracic aortic dissection risk factors, not applicable for this patient, Pulmonary embolism risk factors, include smoking. ROS (15:45 DHAM) CONSTITUTIONAL: Historian denies chills, denies fever, denies lethargy. EYES: Historian denies eye pain, denies eye redness, denies eye discharge. ENT: Historian denies rhinorrhea, denies sore throat, denies stridor, denies voice changes. CARDIOVASCULAR: Historian reports chest pain, pleuritic, in the right chest, upper, no radiation, Historian denies diaphoresis, reports dyspnea on exertion, reports exercise intolerance, denies syncope, denies palpitations. RESPIRATORY: Historian denies cough, reports shortness of breath, denies sputum. GI: Historian denies abdominal pain, denies diarrhea, denies nausea, denies vomiting. chronic "problems with a hiatal hernia". GENITOURINARY FEMALE: Historian denies dysuria, denies frequency, denies urgency. MUSCULOSKELETAL: Historian denies arthralgias, denies injury. marked kyphosis. SKIN: Historian denies pruritis, denies rash, denies skin changes. NEUROLOGIC: Historian denies confusion, denies dizziness, denies gait changes, denies lethargy, denies mental status changes, denies paresthesias, denies sensory changes, denies speech changes. ENDOCRINE: Historian denies cold intolerance, denies polydipsia, denies polyuria. HEMO/LYMPHATIC: Historian denies abnormal blood clotting, denies &a-1R&a+25V*p+0X*[id number]*c202B*c15G*c2P*p-0X&a-25V&a+1R Name: Ashly Box : 1940 F76 MedRec: [id number] AcctNum: [id number] Prepared: Sat Oct 12, 2016 03:10 by Interface Page 11 of 17 pMD [facility] EMERGENCY RECORD easy bruising. ALLERGIC/IMMUNOLOGIC: Historian denies eczema, denies hives. PAST MEDICAL HISTORY MEDICAL HISTORY: Notes: VERIFIED 07-18-16, Past medical history includes cardiac history, coronary artery disease, myocardial infarction, Past medical history includes musculoskeletal disorder, osteoporosis, Past medical history includes pulmonary disease, chronic obstructive pulmonary disease, emphysema, Notes: COMPRESSION FRACTURES, CERVICAL CANCER, CHRONIC BACK PAIN, Past medical history includes gastrointestinal disease, gastroesophageal reflux disease, Past medical history includes history of hyperlipidemia, high cholesterol. verified 12/23/15.VERIFIED 10/11/16. (14:11 EROG) FEMALE SURGICAL HISTORY: FX PELVIS, BACK SURGERY X 3 IN 1970'S, HYSTERECTOMY, CERVICAL CANCER, FOOT SURGERIES TO RIGHT FOOT X 3, LEFT FOOT X 2, LEFT TKR,. verified 12/23/15. VERIFED 10/11/16. (14:11 EROG) PSYCHIATRIC HISTORY: Notes: DENIES, Notes: DENIES. verified 12/23/15. VERIFIED 10/11/16. (14:11 EROG) SOCIAL HISTORY: Patient denies alcohol use, Patient denies drug use, Patient is a former tobacco user, smoked cigarettes, Patient quit smoking less than 10 years ago, Patient denies alcohol use, Patient denies drug use, Patient is a former tobacco user, smoked cigarettes, Patient quit smoking in the past year. verified 12/23/15. VERIFIED 10/11/16. (14:11 EROG) Patient denies alcohol use, Patient denies drug use, Patient is a former tobacco user, smoked cigarettes, Patient quit smoking less than 10 years ago, Patient denies alcohol use, Patient denies drug use, Patient is a former tobacco user, smoked cigarettes, Patient quit smoking in the past year. verified 12/23/15. VERIFIED 10/11/16. Pt tells me that she did smoke a cigarette on the way up here and smokes intermittently. (15:56 DHAM) NOTES: HAVE EXAMINED AND AGREE WITH PMHX, SOCIAL HX AND PAST FAMILY HX as noted in nursing docuentation. (15:57 DHAM) PHYSICAL EXAM (15:51 DHAM) CONSTITUTIONAL: Vital signs reviewed, Patient afebrile, Pulse mildly tachycardic, Blood pressure normal, Respiratory rate normal, Patient appears non toxic, Patient appears pain free, Patient alert and oriented to person, place and time. Pt ambulated in without her O2 and her RA sat was 61%. She was placed on 3L/nc and it comes up to 90-91%. HEAD: Head exam normal, Head exam included findings of head atraumatic, normocephalic. EYES: Eye exam included findings of eyelids normal to inspection, Pupils equally round and reactive to light, Extraocular muscles intact, Conjunctiva normal, Sclera normal. ENT: Ear exam normal, Nose exam normal, Pharynx exam normal, Uvula exam normal, Tonsil exam normal, Mouth exam normal, mucous membranes moist. &a-1R&a+25V*p+0X*v0473T*c202B*c15G*c2P*p-0X&a-25V&a+1R Name: Ashly oBx : 1940 F76 MedRec: [id number] AcctNum: [id number] Prepared: Sat Oct 12, 2016 03:10 by Interface Page 12 of 17 pMD [facility] EMERGENCY RECORD NECK: Neck exam normal, Neck exam included findings of normal range of motion, Trachea midline, no meningeal signs, no jugular venous distention, no cervical adenopathy. RESPIRATORY CHEST: chest with marked kyphosis suggesting restrictive dz, Respiratory exam included findings of no respiratory distress, Breath sounds clear but markedly diffusely decreased, No wheezing, No rales noted. Bowel sounds noted on left chest exam. CARDIOVASCULAR: Cardiovascular exam included findings of heart rate mildly tachycardic and regular rhythm, Heart sounds normal, normal S1, normal S2, no murmurs, Pedal pulses normal. ABDOMEN FEMALE: Abdominal exam normal, Abdominal exam included findings of abdomen nontender, Bowel sounds normal, Liver normal, Spleen normal, no distension, no mass, no peritoneal signs, no rigidity, no guarding, no rebound. BACK: Back exam normal, Back exam included findings of normal inspection, range of motion normal, no tenderness. UPPER EXTREMITY: Upper extremity exam normal, Upper extremity exam included findings of inspection normal, Range of motion normal, Motor strength normal, Sensation intact. LOWER EXTREMITY: Lower extremity exam normal, Lower extremity exam included findings of inspection normal, Range of motion normal, Motor strength normal, Sensation intact, Pedal pulse normal. NEURO: [place] coma scale 15, Neuro exam findings include patient oriented to person, place and time, Speech normal, Gait normal, Cranial nerves intact, Deep tendon reflexes normal, no focal motor deficits, no focal sensory deficits, no cerebellar deficits. SKIN: Skin exam normal, Skin exam included findings of skin warm, dry, and normal in color, no rash. LYMPHATIC: Lymphatic exam normal, Lymphatic exam included findings of cervical nodes normal. PSYCHIATRIC: Psychiatric exam included findings of patient oriented to person place and time, Normal affect, Judgment normal, Insight normal, Remote memory normal, Recent memory normal, Concentration normal, No suicidal ideations. EVENTS TRANSFER: Triage to Emergency Triage. (FriOct 11, 2016 14:02 EROG) Emergency Triage to Main ED -05. (14:11 EROG) Removed from Emergency Main ED -05. (20:03 EROG) RADIOLOGYINTERPRETATION CHEST: Chest films negative, no infiltrates, no pneumothorax, no hemothorax, no masses, no cardiomegaly, no congestive heart failure, no effusion, no free air, "bilat basilar parenchymal changes". (17:46 DHAM) Chest CT, with contrast shows, no fractures, patchy infiltrate, to the left lower, no pneumothorax, no hemothorax, no pleural effusion, no pulmonary embolism, no mass. (17:52 DHAM) &a-1R&a+25V*p+0X*c5229T*c202B*c15G*c2P*p-0X&a-25V&a+1R Name: Ashly Box : 1940 F76 MedRec: [id number] AcctNum: [id number] Prepared: Sat Oct 12, 2016 03:10 by Interface Page 13 of 17 pMD [facility] EMERGENCY RECORD EKG INTERPRETATION (14:54 DHAM) 12 LEAD EKG INTERPRETATION: 12 lead EKG interpreted by Emergency Department Physician at time of study, 12 lead EKG shows, sinus tachycardia, Rate (beats per minute): 102, with no ectopics, Compared with previous EKG from, 07/25/2016 04:52, Interpretation: normal EKG, Similar to old EKG, Conduction normal, ST segments normal, T waves normal, [place], left. O2SAT INTERPRETATION (15:18 DHAM) O2SAT: Continuous pulse oximetry, Oxygen saturation 88%, on room air, Oxygen saturation interpretation: Hypoxic, Intervention required: Oxygen administration, Pt usually uses O2 at 2.5L/NC. Here on 3 liters/NC she is 90%. DOCTOR NOTES (17:47 DHAM) TEXT: Given the pt's tenuous pulmonary status, she likely needs RT evaluation with her admission. Pt requests [facility]. Pt discussed with Dr. Herrera who accepts the pt in transfer via EMS. She appears stable for transfer. She has had her Levaquin 750mg IV started. PROBLEM LIST No recorded problems DIAGNOSIS (17:45 DHAM) FINAL: PRIMARY: PNEUMONIA UNSPECIFIED ORGANISM. DISPOSITION PATIENT: Disposition Type: Transfer, Disposition: Transfer to [facility]. (17:45 DHAM) Patient left the department. (20:03 EROG) PRESCRIPTION No recorded prescriptions IMAGING *EKG: Image captured from scanner. (15:13 AWAT) *MEMORANDUM OF TRANSFER: Image captured from scanner. (18:10 AGAN) EMS TRANSPORT ORDERS: Image captured from scanner. (18:10 AGAN) CONSENTS: Image captured from scanner. (18:11 AGAN) RHYTHM STRIP: Image captured from scanner. (20:10 EROG) *SUPPLY CHARGE SHEET: Image captured from scanner. (20:11 EROG) TRANSFER WORKSHEET: Image captured from scanner. (23:31 AGAN) Page 2 added. Image captured from scanner. (23:31 AGAN) FAX CONFIRMATION: Image captured from scanner. ([facility] Oct 12, 2016 00:04 AGAN) ADMIN DIGITAL SIGNATURE: GUSTAVO Dumont, Khang. (20:17 EROG) &a-1R&a+25V*p+0X*s4399T*c202B*c15G*c2P*p-0X&a-25V&a+1R Name: Ashly Box : 1940 F76 MedRec: [id number] AcctNum: [id number] Prepared: [facility] Oct 12, 2016 03:10 by Interface Page 14 of 17 pMD [facility] EMERGENCY RECORD MD Espana Darren. ([facility] Oct 12, 2016 03:02 DHAM) RESULTS RADIOLOGY: XR Chest 1 View Portable Observe DT: FriOct 11, 2016 14:32, CXRP EXAM: ONE VIEW CHEST: COMPARISON: 07/25/16. HISTORY: Chest pain. FINDINGS: Enlarged cardiac silhouette. The patient is kyphotic which limits evaluation of the lung apices. T here is pleural and parenchymal of both lung bases. No obvious pneumothorax or osseous abnormality. IMPRESSION: Bibasilar pleural and parenchymal changes. POS: [facility] . (17:46 DHAM) LABORATORY: D-Dimer (Quantitative) Collection DT: FriOct 11, 2016 15:18, See comment below , Anticoagulant? NONE Medical Necessity SUSPECT COAGULOPATHY , *D-Dimer Test 0.64 - H *mcg/mL, Range (0.27-0.43), * Reference Range Units: mcg/mL of fibrinogen equivalent, units(FEU) Based upon a retrospective study of [facility] patients in January 2006, a result of Less than 0.44 mcg/mL FEU is, predictive of the absence of a DVT or PE. . (15:58 DHAM) PTT Collection DT: FriOct 11, 2016 15:18, See comment below , Anticoagulant? NONE Medical Necessity SUSPECT COAGULOPATHY , PTT 27.9 SEC, Range (22.9-36.1). (15:58 DHAM) Protime with INR Collection DT: FriOct 11, 2016 15:18, See comment below , Anticoagulant? NONE Medical Necessity SUSPECT COAGULOPATHY , Prothrombin Time 13.1 SEC, Range (12.0-14.7), INR-International Normal Ratio 1.0 , ATTENTION: READ CAREFULLY , The, recommended therapeutic ranges for oral anticoagulant &a-1R&a+25V*p+0X*k2510W*c202B*c15G*c2P*p-0X&a-25V&a+1R Name: Ashly Box : 1940 F76 MedRec: [id number] AcctNum: [id number] Prepared: [place] Oct 12, 2016 03:10 by Interface Page 15 of 17 [facility] EMERGENCY RECORD treatments are: , , Low Intensity: 1.5 - 2.0 Moderate Intensity: 2.0, - 3.0 High Intensity (1): 2.5 - 3.5 High, Intensity (2): 3.0 - 4.0 CRITICAL: >, 4.0 . (15:58 [facility]) Cardiac Profile w/CKMB & TropI Collection DT: FriOct 11, 2016 15:18, CKMB 5.5 ng/mL, Range (0-6.6), Troponin I Less than 0.010 ng/mL, Range (< 0.028), Reference Range , 0.00 - 0.028 ng/mL Negative 0.029 - 0.29 ng/mL , Indeterminate Greater or Equal to 0.3 ng/mL Strongly suggests ND , . (15:58 DHAM) Lipase Collection DT: FriOct 11, 2016 15:18, *Lipase 6 - L U/L, Range (8-78). (15:58 DHAM) Comprehensive Metabolic Panel Collection DT: FriOct 11, 2016 15:18, Sodium 136 mmol/L, Range (136-145), Potassium 4.6 mmol/L, Range (3.5-5.1), Chloride 98 mmol/L, Range (98-107), Carbon Dioxide 25 mmol/L, Range (23-31), Anion Gap 18 mmol/L, Range (10-20), BUN (Urea Nitrogen) 13 mg/dL, Range (9.8-20.1), Creatinine 0.78 mg/dL, Range (0.6-1.1), Estimated GFR-MDRD 72 , Reference Range for Estimated GFR: Greater than 90, mL/min/1.73 m2 NOTE: The MDRD equation has not been validated for use, with the elderly (over 70 years of age), women, patients with, serious comorbid condition or persons with extremes of body size, muscle, mass, or nutritional status. , *Glucose 116 - H mg/dL, Range (83-110), Calcium 10.1 mg/dL, Range (7.8-10.44), Bilirubin, Total 0.5 mg/dL, Range (0.2-1.2), Protein, Total 8.0 g/dL, Range (5.8-8.1), NOTE: Plasma values are generally 0.3 to 0.5 g/dL higher than serum values, due to the presence of fibrinogen. , Albumin 4.5 g/dL, Range (3.4-4.8), Globulin 3.5 g/dL, Range (2.4-3.5), Alb/Glob Ratio 1.3 g/dL, Range (1.2-2.2), Alkaline Phosphatase 101 U/L, Range (40-150), AST (SGOT) 26 U/L, Range (5-34), &a-1R&a+25V*p+0X*k4457R*c202B*c15G*c2P*p-0X&a-25V&a+1R Name: Ashly Box : 1940 F76 MedRec: [id number] AcctNum: [id number] Prepared: Sat Oct 12, 2016 03:10 by Interface Page 16 of 17 pMD [facility] EMERGENCY RECORD ALT (SGPT) 26 U/L, Range (0-55). (15:58 DHAM) CBC with Differential Collection DT: FriOct 11, 2016 15:18, *White Blood Cell (WBC) Count 11.7 - H thou/uL, Range (4.8-10.8), Red Blood Cell (RBC) Count 4.90 mill/uL, Range (4.20-5.40), Hemoglobin 15.6 g/dL, Range (12.0-16.0), Hematocrit 47.0 %, Range (36.0-47.0), Mean Corpuscular Volume 95.8 fl, Range (81.0-99.0), *Mean Corpuscular Hemoglobin 31.9 - H pg, Range (27.0-31.0), Mean Corpuscular HGB CONC 33.3 g/dL, Range (32.0-36.0), RBC Distribution Width 12.7 %, Range (11.5-14.5), Platelet Count 238 thou/uL, Range (130-400), Mean Platelet Volume 7.9 fL, Range (7.4-10.4), *%Neutrophils 87.8 - H %, Range (42.0-75.0), *%Lymphocytes 9.7 - L %, Range (21.0-51.0), %Monocytes 2.4 %, Range (0.0-10.0), %Eosinophils 0.0 %, Range (0.0-10.0), %Basophils 0.2 %, Range (0.0-1.0), *#Neutrophils 10.2 - H thou/uL, Range (1.40-6.50), *#Lymphocytes 1.1 - L thou/uL, Range (1.20-3.40), #Monocytes 0.3 thou/uL, Range (0.11-0.59), #Eosinphils 0.0 thou/uL, Range (0.0-0.7), #Basophils 0.0 thou/uL, Range (0.0-0.2). (15:58 DHAM) Urinalysis w/ Rflx Microscopic Collection DT: FriOct 11, 2016 16:39, Color Yellow , Range (Yellow), Clarity Clear , Range (Clear), Specific [place], Urine 1.015 , Range (1.005-1.030), pH, Urine 7.5 , Range (5.0-9.0), Leukocyte Negative , Range (Negative), Nitrite Negative , Range (Negative), Protein, Urine (Dipstick) Negative mg/dL, Range (Neg-Trace), Glucose, Urine (Dipstick) Negative mg/dL, Range (Negative), Ketone, Urine Negative mg/dL, Range (Negative), Urobilinogen 0.2 mg/dL, Range (0.2-1.0), Bilirubin Negative , Range (Negative), Blood, Urine Negative , Range (Negative). (17:46 DHAM) Lactic Acid for Sepsis Collection DT: FriOct 11, 2016 15:18, Lactic Acid - Sepsis 1.2 mmol/L, Range (0.5-2.2). (17:46 DHAM) [place]: THELMA=GUSTAVO Pichardo, Tyler CABEZAS=GUSTAVO Wills, Mirza LARA=MD Leora, George PATE=GUSTAVO Dumont, Khang CROSS=SAMANTHA Trivedi, Mamadou &a-1R&a+25V*p+0X*v9043Q*c202B*c15G*c2P*p-0X&a-25V&a+1R Name: Charu Ashly D : 1940 F76 MedRec: [id number] AcctNum: [id number] Prepared: Sat Oct 12, 2016 03:10 by Interface Page 17 of 17 pMD [facility]
== END 2016-10-11 20:02 | disposition short-term general hospital (02) ==
LOC: MADERS 13:50
DX: J18.9 Pneumonia, unspecified organism (principal); J44.9 Chronic obstructive pulmonary disease, unspecified; K21.9 Gastro-esophageal reflux disease without esophagitis; E78.5 Hyperlipidemia, unspecified; I25.2 Old myocardial infarction; Z79.899 Other long term (current) drug therapy
CPT/HCPCS: 36415; 51701; 71010; 71275; 80053; 81003; 82553; 83605; 83690; 84484; 85025; 85379; 85610; 85730; 87040; 93005; 94640; 94760; 96365; 96366; 96375; A4216; A4353; J1956; J2930; J3010; J7620